=== PATIENT | female | born 1995 | race Caucasian/White ===

== ENCOUNTER 2018-02-26 12:26 | Emergency (ER) | payer MEDICAID ==
[~2018-02-26] VITALS: Ht 160 cm; Wt 49.9 kg
[2018-02-26] MEDS ORDERED: PRENATAL (12:43)
[2018-02-26 13:39] LABS: URINE BILIRUBIN NEGATIVE (Negative); URINE BLOOD NEGATIVE (Negative); URINE CLARITY CLEAR; URINE COLOR YELLOW; URINE GLUCOSE-RANDOM NEGATIVE (Negative); URINE KETONES NEGATIVE (Negative); URINE LEUKOCYTES-REFLEX 1+ (Negative); URINE NITRITE-REFLEX NEGATIVE (Negative); URINE PROTEIN NEGATIVE (Negative); URINE SPECIFIC GRAVITY 1.025 (1.005-1.030); URINE UROBILINOGEN 0.2 E.U./dl (0.2-1.0)
[2018-02-26 13:50] LABS: BACTERIA-REFLEX None Seen /HPF (None Seen); CASTS None Seen /LPF (None Seen); CRYSTALS None Seen /LPF (None Seen); SQUAMOUS NONE SEEN /LPF (0-3); URINE RBC None Seen /HPF (0-2); URINE WBC-REFLEX None Seen /HPF (0-5)
[2018-02-26 14:30] VITALS: BP 100/48
== END 2018-02-26 14:31 | disposition home or self-care (01) ==
LOC: M.ERS 12:26
PROVIDERS: Physician Assistant
DX: O26.892 Other specified pregnancy related conditions, second trimester (principal); Z3A.21 21 weeks gestation of pregnancy; M54.9 Dorsalgia, unspecified; W10.9XXA Fall (on) (from) unspecified stairs and steps, initial encounter; Y93.89 Activity, other specified; Y92.89 Other specified places as the place of occurrence of the external cause; Y99.8 Other external cause status

== ENCOUNTER 2018-05-21 22:14 | Emergency (ER) | payer MEDICAID ==
[~2018-05-21] VITALS: Ht 160 cm; Wt 58.1 kg
[~2018-05-21 22:14] MED LIST: PRENATAL
[2018-05-21] MEDS ORDERED: CALCIUM 500 +1 EACH (22:24)
[2018-05-21 22:45] LABS: URINE BILIRUBIN NEGATIVE (Negative); URINE BLOOD NEGATIVE (Negative); URINE CLARITY CLEAR; URINE COLOR YELLOW; URINE GLUCOSE-RANDOM NEGATIVE (Negative); URINE KETONES NEGATIVE (Negative); URINE LEUKOCYTES-REFLEX NEGATIVE (Negative); URINE NITRITE-REFLEX NEGATIVE (Negative); URINE PROTEIN NEGATIVE (Negative); URINE SPECIFIC GRAVITY <= 1.005 (1.005-1.030); URINE UROBILINOGEN 0.2 E.U./dl (0.2-1.0)
[2018-05-21] MEDS ORDERED: AMOXICILLIN 50500 MG PO (23:02)
[2018-05-21 23:08] VITALS: BP 108/62
== END 2018-05-21 23:09 | disposition home or self-care (01) ==
LOC: M.ERS 22:14
PROVIDERS: Nurse Practitioner Psychiatric/Mental Health
DX: J02.9 Acute pharyngitis, unspecified (principal)

== ENCOUNTER 2018-08-24 19:02 | Emergency (ER) | payer OTHER, MEDICAID ==
[~2018-08-24] VITALS: Ht 160 cm; Wt 51.3 kg
[~2018-08-24 19:02] MED LIST changes: +AMOXICILLIN 50500 MG PO; +CALCIUM 500 +1 EACH
[2018-08-24 20:23] LABS: URINE BILIRUBIN NEGATIVE (Negative); URINE BLOOD NEGATIVE (Negative); URINE CLARITY CLEAR; URINE COLOR YELLOW; URINE GLUCOSE-RANDOM NEGATIVE (Negative); URINE KETONES NEGATIVE (Negative); URINE LEUKOCYTES-REFLEX TRACE (Negative); URINE NITRITE-REFLEX NEGATIVE (Negative); URINE PROTEIN NEGATIVE (Negative); URINE UROBILINOGEN 0.2 E.U./dl (0.2-1.0)
[2018-08-24 20:25] LABS: BACTERIA-REFLEX 1-9 Few /HPF (None Seen); CASTS None Seen /LPF (None Seen); CRYSTALS None Seen /LPF (None Seen); SQUAMOUS 0-3 Few /LPF (0-3); URINE RBC 0-2 Rare /HPF (0-2); URINE WBC-REFLEX 0-5 Rare /HPF (0-5)
[2018-08-24] MEDS ORDERED: DENAVIR5 GM TOP (20:30)
[2018-08-24 20:49] VITALS: BP 107/63
== END 2018-08-24 20:50 | disposition home or self-care (01) ==
LOC: M.ERS 19:02
PROVIDERS: Nurse Practitioner Family
DX: O98.33 Other infections with a predominantly sexual mode of transmission complicating the puerperium (principal); A60.03 Herpesviral cervicitis; Z87.42 Personal history of other diseases of the female genital tract

== ENCOUNTER 2018-09-07 17:30 | Emergency (ER) | payer OTHER, MEDICAID ==
[~2018-09-07] VITALS: Ht 147.3 cm; Wt 49.9 kg
[~2018-09-07 17:30] MED LIST changes: +DENAVIR5 GM TOP
[2018-09-07 18:33] VITALS: BP 127/73
== END 2018-09-07 18:34 | disposition home or self-care (01) ==
LOC: M.ERS 17:30
DX: H61.21 Impacted cerumen, right ear (principal)

== ENCOUNTER 2018-11-26 03:04 | Emergency (ER) | payer OTHER, MEDICAID ==
[~2018-11-26] VITALS: Ht 160 cm; Wt 50.8 kg
[2018-11-26 03:31] LABS: URINE BILIRUBIN NEGATIVE (Negative); URINE BLOOD 3+ (Negative); URINE CLARITY SL CLOUDY; URINE COLOR YELLOW; URINE GLUCOSE-RANDOM NEGATIVE (Negative); URINE KETONES NEGATIVE (Negative); URINE LEUKOCYTES-REFLEX 1+ (Negative); URINE NITRITE-REFLEX NEGATIVE (Negative); URINE PROTEIN NEGATIVE (Negative); URINE UROBILINOGEN 0.2 E.U./dl (0.2-1.0)
[2018-11-26 03:57] LABS: HEMATOCRIT 35.3 % (37.0-47.0); MCHC 33.9 g/dL (28.0-37.0); MCV 91.3 fL (80.0-100.0); MPV 8.3 fl. (7.2-11.1); NUCLEATED RBCS 0 /100WBC; PLATELET COUNT* 120 thou/uL (150-400); RBC 3.87 mil/uL (4.20-5.00); RDW-CV 13.6 % (10.5-14.5); WBC 7.1 thou/uL (4.0-11.0)
[2018-11-26 03:58] LABS: BACTERIA-REFLEX >30 Many /HPF (None Seen); CASTS None Seen /LPF (None Seen); CRYSTALS None Seen /LPF (None Seen); MUCUS 4-6 Moderate strn/LPF (None Seen); SQUAMOUS 0-3 Few /LPF (0-3); URINE RBC >20 Many /HPF (0-2); URINE WBC-REFLEX >25 Many /HPF (0-5); WBC CLUMPS Few (None Seen)
[2018-11-26 04:06] LABS: CALCIUM 8.5 mg/dL (8.5-10.1); CREATININE 0.7 mg/dL (0.6-1.3); POTASSIUM 3.4 mmol/L (3.5-5.1)
[2018-11-26 04:10] LABS: ALBUMIN 3.3 g/dL (3.4-5.0); TOTAL BILIRUBIN 0.7 mg/dL (<0.1-1.0); TOTAL PROTEIN 6.4 g/dL (6.4-8.2)
[2018-11-26 05:03] LABS: ABSOLUTE LYMPHOCYTES 0.4 thou/uL (0.8-5.3); ABSOLUTE MONOCYTES 0.2 thou/uL (0.0-1.2); ABSOLUTE NEUTROPHILS 6.5 thou/uL (1.6-8.1); PLATELET ESTIMATE DECREASED; TOXIC GRANULATION 1+
[2018-11-26] MEDS ORDERED: BACTRIM DS TAB1 EACH PO (06:12)
[2018-11-26 06:53] VITALS: BP 96/38
== END 2018-11-26 06:55 | disposition home or self-care (01) ==
LOC: M.ERS 03:04
PROVIDERS: Emergency Medicine
DX: N39.0 Urinary tract infection, site not specified (principal)

== ENCOUNTER 2020-05-18 19:34 | Emergency (ER) | payer OTHER, MEDICAID ==
[~2020-05-18] VITALS: Ht 160 cm; Wt 58.1 kg
[~2020-05-18 19:34] MED LIST changes: +BACTRIM DS TAB1 EACH PO
[2020-05-18 19:51] LABS: URINE BILIRUBIN NEGATIVE (Negative); URINE BLOOD NEGATIVE (Negative); URINE CLARITY CLEAR; URINE COLOR YELLOW; URINE GLUCOSE-RANDOM NEGATIVE (Negative); URINE KETONES NEGATIVE (Negative); URINE LEUKOCYTES-REFLEX TRACE (Negative); URINE NITRITE-REFLEX NEGATIVE (Negative); URINE PROTEIN NEGATIVE (Negative); URINE UROBILINOGEN 0.2 E.U./dl (0.2-1.0)
[2020-05-18] MEDS ORDERED: AMITRIPTYLINE H10 M1 PO (19:53)
[2020-05-18] MEDS ORDERED: VALACYCLOVIR500 MG PO (19:54)
[2020-05-18 19:59] LABS: CASTS None Seen /LPF (None Seen); CRYSTALS None Seen /LPF (None Seen); MUCUS None Seen strn/LPF (None Seen); SQUAMOUS >10 Many /LPF (0-3); URINE RBC None Seen /HPF (0-2); URINE WBC-REFLEX 0-5 Rare /HPF (0-5)
[2020-05-18 20:18] LABS: ABSOLUTE EOSINOPHILS 0.1 thou/uL (0.0-0.7); ABSOLUTE LYMPHOCYTES 1.9 thou/uL (0.8-5.3); ABSOLUTE MONOCYTES 0.3 thou/uL (0.0-1.2); ABSOLUTE NEUTROPHILS 4.2 thou/uL (1.6-8.1); BASOPHILS 0.3 %; EOSINOPHILS 0.8 %; HEMATOCRIT 42.5 % (37.0-47.0); HEMOGLOBIN 14.2 gm/dL (12.0-15.0); LYMPHOCYTES 29.5 %; MCH 30.3 pg (26.0-34.0); MCHC 33.4 g/dL (28.0-37.0); MCV 90.9 fL (80.0-100.0); MONOCYTES 4.9 %; MPV 8.1 fl. (7.2-11.1); NUCLEATED RBCS 0 /100WBC; PLATELET COUNT* 205 thou/uL (150-400); POLYS 64.5 %; RBC 4.68 mil/uL (4.20-5.00); RDW-CV 13.6 % (10.5-14.5); WBC 6.5 thou/uL (4.0-11.0)
[2020-05-18 20:23] LABS: CREATININE 0.9 mg/dL (0.6-1.3); POTASSIUM 3.4 mmol/L (3.5-5.1)
[2020-05-18] MEDS ORDERED: KEFLEX500 M1 PO (20:46)
[2020-05-18] MEDS ORDERED: APAP W/CODEINE1 TA2 PO (20:46)
[2020-05-18] MEDS ORDERED: PEPCID20 MG PO (20:46)
[2020-05-18] MEDS ORDERED: CARAFATE 1 GM TA1 GM PO (20:46)
[2020-05-18 21:10] VITALS: BP 125/68
== END 2020-05-18 21:10 | disposition home or self-care (01) ==
LOC: M.ERS 19:34
PROVIDERS: Emergency Medicine
DX: R10.32 Left lower quadrant pain (principal)

== ENCOUNTER 2020-10-10 10:17 | Emergency (ER) | payer OTHER, MEDICAID ==
[~2020-10-10] VITALS: Ht 160 cm; Wt 54.9 kg
[~2020-10-10 10:17] MED LIST changes: +AMITRIPTYLINE H10 M1 PO; +APAP W/CODEINE1 TA2 PO; +CARAFATE 1 GM TA1 GM PO; +KEFLEX500 M1 PO; +PEPCID20 MG PO; +VALACYCLOVIR500 MG PO
[2020-10-10] MEDS ORDERED: PROTONIX40 M2 PO (10:29)
[2020-10-10] MEDS ORDERED: IRON325 M1 PO (10:29)
[2020-10-10 10:42] LABS: URINE BILIRUBIN NEGATIVE (Negative); URINE BLOOD NEGATIVE (Negative); URINE CLARITY CLEAR; URINE COLOR YELLOW; URINE GLUCOSE-RANDOM NEGATIVE (Negative); URINE KETONES NEGATIVE (Negative); URINE LEUKOCYTES-REFLEX NEGATIVE (Negative); URINE NITRITE-REFLEX NEGATIVE (Negative); URINE PROTEIN NEGATIVE (Negative); URINE UROBILINOGEN 0.2 E.U./dl (0.2-1.0)
[2020-10-10 10:52] LABS: ABSOLUTE LYMPHOCYTES 0.7 thou/uL (0.8-5.3); ABSOLUTE MONOCYTES 0.5 thou/uL (0.0-1.2); ABSOLUTE NEUTROPHILS 2.6 thou/uL (1.6-8.1); BASOPHILS 0.4 %; EOSINOPHILS 0.2 %; HEMATOCRIT 38.3 % (37.0-47.0); HEMOGLOBIN 12.4 gm/dL (12.0-15.0); LYMPHOCYTES 18.7 %; MCH 27.9 pg (26.0-34.0); MCHC 32.4 g/dL (28.0-37.0); MCV 86.1 fL (80.0-100.0); MONOCYTES 12.5 %; MPV 8.7 fl. (7.2-11.1); NUCLEATED RBCS 0 /100WBC; PLATELET COUNT* 162 thou/uL (150-400); POLYS 68.2 %; RBC 4.45 mil/uL (4.20-5.00); WBC 3.9 thou/uL (4.0-11.0)
[2020-10-10 10:59] LABS: CALCIUM 9.1 mg/dL (8.5-10.1); CREATININE 0.8 mg/dL (0.6-1.3); POTASSIUM 4.4 mmol/L (3.5-5.1)
[2020-10-10 11:04] LABS: ALBUMIN 4.1 g/dL (3.4-5.0); TOTAL BILIRUBIN 0.4 mg/dL (<0.1-1.0); TOTAL PROTEIN 7.3 g/dL (6.4-8.2)
[2020-10-10 11:32] VITALS: BP 118/62
== END 2020-10-10 11:34 | disposition home or self-care (01) ==
LOC: M.ERS 10:17
PROVIDERS: Physician Assistant
DX: R53.1 Weakness (principal); Z20.822 Contact with and (suspected) exposure to COVID-19; R59.0 Localized enlarged lymph nodes; R52 Pain, unspecified; R68.83 Chills (without fever); Z79.899 Other long term (current) drug therapy

== ENCOUNTER 2021-02-27 11:16 | Emergency (ER) | payer OTHER, MEDICAID ==
[~2021-02-27] VITALS: Ht 160 cm; Wt 55.3 kg
[~2021-02-27 11:16] MED LIST changes: +IRON325 M1 PO; +PROTONIX40 M2 PO
[2021-02-27 13:33] LABS: HEMATOCRIT 40.7 % (37.0-47.0); HEMOGLOBIN 13.3 gm/dL (12.0-15.0); MCH 27.7 pg (26.0-34.0); MCHC 32.7 g/dL (28.0-37.0); MPV 8.5 fl. (7.2-11.1); RBC 4.79 mil/uL (4.20-5.00); RDW-CV 15.2 % (10.5-14.5); WBC 4.9 thou/uL (4.0-11.0)
[2021-02-27 13:43] LABS: CREATININE 0.7 mg/dL (0.6-1.3); POTASSIUM 3.8 mmol/L (3.5-5.1)
--- NOTE | 2021-02-27 14:40 | EKG ---
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: [place] : 1995 Requested By: Federico Garcia Order Number: [id number] MD: Bonilla Angel Measurements Intervals [place] Rate: 104 P: 46 [place]: 118 QRS: -11 QRSD: 76 T: 15 QT: 312 QTc: 411 Interpretive Statements Sinus tachycardia with irregular rate RsR' in V1 Probable left atrial enlargement Borderline T abnormalities, anterior leads No previous ECG available for comparison Electronically Signed On 02-27-2021 14:40:33 CLAIMS AUDITOR by Bonilla Angel [email or web address] <ELECTRONICALLY SIGNED> By: Bonilla Angel MD, [facility] 02/27/21 1440 1129 1129 Bonilla Angel MD, [facility] /EPI
[2021-02-27 14:48] VITALS: BP 119/74
== END 2021-02-27 14:48 | disposition home or self-care (01) ==
LOC: M.ERS 11:16
PROVIDERS: Physician Assistant
DX: R00.2 Palpitations (principal); R07.89 Other chest pain; F41.9 Anxiety disorder, unspecified